=== PATIENT | male | born 1980 | race African-American/Black ===

== ENCOUNTER 2019-10-03 09:49 | Emergency (ER) | payer MEDICAID, OTHER ==
[~2019-10-03] VITALS: Ht 172.7 cm; Wt 93.0 kg
[2019-10-03] MEDS ORDERED: HCTZ 25 MG TAB PO ONE (10:15)
[2019-10-03] MEDS ORDERED: LISINOPRIL 20 MG TAB PO ONE (10:15)
[2019-10-03 10:28] VITALS: BP 165/111
== END 2019-10-03 10:33 | disposition home or self-care (01) ==
LOC: ER 09:49
DX: I10 Essential (primary) hypertension (principal); Z76.0 Encounter for issue of repeat prescription